=== PATIENT | male | born 1940 | race Caucasian/White ===

== ENCOUNTER → 2017-12-28 | Outpatient (CLI) | payer MEDICARE ==
[~2017-12-28] MED LIST: REGADENOSON 0.4 MG/5 ML SYRINGE ONE
== END | disposition home or self-care (01) ==
LOC: CFH 08:09
PROVIDERS: ATTEND Internal Medicine Cardiovascular Disease
DX: I49.3 Ventricular premature depolarization (principal); I25.9 Chronic ischemic heart disease, unspecified
CPT/HCPCS: 78452; 93017; A9502; J2785

== ENCOUNTER 2019-08-06 15:39 | Outpatient (CLI) | payer MEDICARE | END 2019-08-06 23:59 | disposition home or self-care (01) | LOC: CVU 15:39 | PROVIDERS: ATTEND Internal Medicine Cardiovascular Disease | DX: I08.8 Other rheumatic multiple valve diseases (principal); I49.3 Ventricular premature depolarization | CPT/HCPCS: 93306 ==

== ENCOUNTER 2019-09-04 18:41 | Inpatient (IN) | payer MEDICARE ==
[~2019-09-04] VITALS: Ht 172.7 cm; Wt 81.4 kg
--- NOTE | 2019-09-04 19:29 | NUR ---
PT BIB EMS FOR ELEVATED BG, PT REPORTS THAT HE HAS NOT FELT WELL FOR ABOUT 2 WEEKS AND HIS LAST NORMAL BG WAS ABOUT A WEEK AGO IN THE [facility] BG. PT REPORTS HE HAS FELT VERY TIRED AND NO ENERGY. PT REPORTS NO OTHER COMPLAINTS. PT IS A/OX4 AND ABLE TO AMBULATE TO WELL. PT REPORTS HE STILL MANAGES TO EAT BUT ITS GETTING MORE DIFFICULT TO GET THINGS DONE. PT PLACED ON SPO2, HR, NIPB, AND RR MONITORS. PT HAS 1 L OF NS RUNNING AND BEDSIDE GLUCOSE WAS ELEVATED AND UANBLE TO READ DUR TO BEING SO HIGH. PT HAS CALL LIGHT IN REACH AND AWAITING FURTHER ORDERS.
[2019-09-04] MEDS ORDERED: SODIUM CHLORIDE 0.9% 1,000ML IVBOLUS ONE ×2 (19:30→21:00)
[2019-09-04 19:41] LABS: PH, VENOUS 7.254 pH (7.320-7.420)
[2019-09-04 19:42] LABS: O2 FLOW ROOM AIR L/min
[2019-09-04 20:11] LABS: ACETONE, SERUM Moderate(40mg/dL) mg/dL (Negative)
[2019-09-04 20:19] LABS: CHLORIDE 95 mmol/L (98-107)
[2019-09-04 20:25] LABS: ALANINE AMINOTRANSFERASE 507 U/L (12-78); ALBUMIN 2.8 g/dL (3.4-5.0); ALKALINE PHOSPHATASE 1000 U/L (45-117); ANION GAP 21 mmol/L (5-15); BILIRUBIN,TOTAL 0.6 mg/dL (0.2-1.0); CALCIUM 9.3 mg/dL (8.5-10.1); CREATININE 7.31 mg/dL (0.7-1.3); TOTAL PROTEIN 7.6 g/dL (6.4-8.2); TROPONIN I < 0.015 ng/mL (0.000-0.045)
[2019-09-04 20:31] LABS: BASOPHILS # (AUTO) 0.02 x10^3/uL (0-0.1); BASOPHILS % (AUTO) 0 % (0-1); EOSINOPHILS # (AUTO) 0.13 x10^3/uL (0-0.4); EOSINOPHILS % (AUTO) 2 % (1-7); LYMPHOCYTES # (AUTO) 0.55 x10^3/uL (1-3.4); LYMPHOCYTES % (AUTO) 7 % (22-44); MD NO; MEAN CORPUSCULAR HEMOGLOBIN 32.9 pg (27.5-34.5); MEAN CORPUSCULAR VOLUME 99.8 fL (81-97); MEAN PLATELET VOLUME 10.7 fL (7.4-10.4); MONOCYTES # (AUTO) 0.54 x10^3/uL (0.2-0.8); MONOCYTES % (AUTO) 7 % (2-9); NEUTROPHILS # (AUTO) 6.59 x10^3/uL (1.8-6.8); NEUTROPHILS % (AUTO) 84 % (42-75); PLATELET COUNT 241 x10^3/uL (130-400); RED BLOOD COUNT 3.46 x10^6/uL (4.38-5.82); RED CELL DISTRIBUTION WIDTH 14.1 % (9.4-14.8)
[2019-09-04] MEDS ORDERED: REGULAR INSULIN 100 UNITS in SODIUM CHLORIDE 0.9% 99 ML IV PRN ×2 (20:45→23:02)
[2019-09-04] MEDS ORDERED: POTASSIUM CHLORIDE 40 MEQ in SODIUM CHLORIDE 0.9% 500 ML IV ONE (21:00)
--- NOTE | 2019-09-04 21:38 | NUR ---
Drip started and verified with Guera watson rn.
--- NOTE | 2019-09-04 23:01 | NUR ---
SPOKE WITH PROVIDER REGARDING ELEVATED BLOOD GLUCOSE AND NEED TO POSSIBLY RAISE INSULIN DRIP. PROVIDER OKAYED TO RAISE BY 1 UNIT PER PROTOCOL NOW TO STABLIZE BUT PT WILL BE KEPT NPO OVERNIGHT AND THEN TRANSIOTIONED TO REGULAR FOOD. PT IS TYPE 2 DIABETIC. PT TO REMAIN ON DRIP AND GO TO ICU.
[2019-09-04] MEDS ORDERED: D5%-0.45% NACL 1,000 ML IV PRN (23:02)
[2019-09-04] MEDS ORDERED: HEPARIN 5,000 UNITS/ML, 1ML ONE (23:28)
[2019-09-04] MEDS ORDERED: LABETALOL 5MG/ML, 20ML IVPush PRN (23:30)
[2019-09-04] MEDS ORDERED: BISACODYL 10 MG SUPP PR PRN (23:30)
[2019-09-04] MEDS ORDERED: OXYcodone IR 5MG TABLET PO PRN (23:30)
[2019-09-04] MEDS ORDERED: hydrALAzine 20 MG/ML, 1ML IVPush PRN (23:30)
[2019-09-04] MEDS ORDERED: POLYETHYLENE GLYCOL 17 GM PACKET PO PRN (23:30)
[2019-09-04] MEDS ORDERED: morphine SULFATE 10 MG/ML, 1ML IVPush PRN (23:30)
[2019-09-04] MEDS ORDERED: ONDANSETRON ODT 4 MG PO PRN (23:30)
[2019-09-04] MEDS ORDERED: DOCUSATE 100 MG CAPSULE PO PRN (23:30)
[2019-09-04] MEDS ORDERED: ACETAMINOPHEN 325 MG TABLET PO PRN (23:30)
[2019-09-04] MEDS ORDERED: ONDANSETRON 2MG/ML, 2ML IVPush PRN (23:30)
[2019-09-04] MEDS ORDERED: PROMETHAZINE 25 MG/ML, 1ML IM PRN (23:30)
[2019-09-04 23:41] LABS: FREE T4 (FREE THYROXINE) 1.33 ng/dL (0.76-1.46)
[2019-09-04] MEDS: SODIUM CHLORIDE 0.9% 1,000 ML IV SCH (23:59)
--- NOTE | 2019-09-05 00:01 | NUR ---
chandni brian to janny coley.
--- NOTE | 2019-09-05 00:03 | NUR ---
BEDSIDE REPORT TO [facility], PT DRIPS CHECKED AT BEDSIDE.
[2019-09-05] MEDS: HEPARIN 5,000 UNITS/ML, 1ML SQ SCH ×4 (00:28→23:53)
[2019-09-05] MEDS ORDERED: VALS160T3 PO (01:28)
[2019-09-05] MEDS ORDERED: CARV6.2512 PO (01:28)
[2019-09-05] MEDS ORDERED: coreg (01:28)
[2019-09-05] MEDS ORDERED: glipizide PO (01:28)
[2019-09-05] MEDS ORDERED: ATOR80TA PO ×2 (01:31→01:32)
[2019-09-05] MEDS ORDERED: LANS15CA60 PO (01:31)
[2019-09-05] MEDS ORDERED: FURO40TA6 PO (01:31)
[2019-09-05] MEDS ORDERED: CHOL100011 PO (01:33)
[2019-09-05 03:17] LABS: ANION GAP 12 mmol/L (5-15); BASOPHILS % (AUTO) 0 % (0-1); CALCIUM 8.9 mg/dL (8.5-10.1); CHLORIDE 111 mmol/L (98-107); CREATININE 6.08 mg/dL (0.7-1.3); EOSINOPHILS # (AUTO) 0.16 x10^3/uL (0-0.4); EOSINOPHILS % (AUTO) 2 % (1-7); LYMPHOCYTES # (AUTO) 0.55 x10^3/uL (1-3.4); LYMPHOCYTES % (AUTO) 6 % (22-44); MD NO; MEAN CORPUSCULAR HEMOGLOBIN 32.7 pg (27.5-34.5); MEAN CORPUSCULAR HGB CONC 32.8 g/dL (33.2-36.2); MEAN CORPUSCULAR VOLUME 99.8 fL (81-97); MEAN PLATELET VOLUME 10.1 fL (7.4-10.4); MONOCYTES # (AUTO) 0.51 x10^3/uL (0.2-0.8); MONOCYTES % (AUTO) 6 % (2-9); NEUTROPHILS # (AUTO) 7.31 x10^3/uL (1.8-6.8); NEUTROPHILS % (AUTO) 86 % (42-75); PLATELET COUNT 266 x10^3/uL (130-400); RED BLOOD COUNT 3.43 x10^6/uL (4.38-5.82); RED CELL DISTRIBUTION WIDTH 13.6 % (9.4-14.8)
[2019-09-05 03:38] LABS: ALANINE AMINOTRANSFERASE 417 U/L (12-78); ALBUMIN 2.6 g/dL (3.4-5.0)
[2019-09-05 03:40] LABS: ALKALINE PHOSPHATASE 868 U/L (45-117); BILIRUBIN,TOTAL 0.4 mg/dL (0.2-1.0)
[2019-09-05 03:41] LABS: CHOL/HDL RATIO 5.5; LDL/HDL RATIO 2.3 (0.5-3.0)
[2019-09-05 04:00] VITALS: BP 108/55
[2019-09-05] MEDS: SODIUM CHLORIDE 0.9% 1,000 ML IV SCH ×2 (04:57→11:47)
[2019-09-05] MEDS ORDERED: CARVEDILOL 6.25 MG TABLET PO SCH (06:00)
[2019-09-05] MEDS: LACTATED RINGERS 1,000 ML IV SCH ×2 (09:16→22:50)
[2019-09-05] MEDS ORDERED: INSULIN GLARGINE 100 UNITS/ML, PEN SQ-INSULIN ONE (11:30)
[2019-09-05] MEDS ORDERED: GLUCAGON 1 MG IM PRN (11:30)
[2019-09-05] MEDS ORDERED: PHARMACY INSTRUCTION MC PRN (11:30)
[2019-09-05] MEDS ORDERED: morphine SULFATE 10 MG/ML, 1ML IVPush PRN (11:30)
[2019-09-05] MEDS ORDERED: DEXTROSE 4 GM TAB.CHEW PO PRN (11:30)
[2019-09-05] MEDS ORDERED: DEXTROSE 50%, 50ML SYRINGE IVPush PRN (11:30)
[2019-09-05 13:06] LABS: ANION GAP 16 mmol/L (5-15); CALCIUM 8.8 mg/dL (8.5-10.1); CHLORIDE 113 mmol/L (98-107)
[2019-09-05 13:07] LABS: CREATININE 5.09 mg/dL (0.7-1.3)
[2019-09-05] MEDS: INSULIN LISPRO 100 UNITS/ML, PEN SQ-INSULIN SCH ×2 (14:06→21:04)
[2019-09-05] MEDS ORDERED: INSULIN LISPRO 100 UNITS/ML, PEN SQ-INSULIN ONE (17:30)
[2019-09-05] MEDS: CARVEDILOL 6.25 MG TABLET PO SCH (18:24)
[2019-09-05 19:02] VITALS: BP 124/76
[2019-09-05] MEDS: SODIUM CHLORIDE FLUSH 10ML SYR IVF SCH (21:03)
[2019-09-05] MEDS: INSULIN GLARGINE 100 UNITS/ML, PEN SQ-INSULIN SCH (21:04)
[2019-09-05] MEDS ORDERED: REGULAR INSULIN 100 UNITS in SODIUM CHLORIDE 0.9% 99 ML IV PRN (23:02)
[2019-09-06 01:38] VITALS: BP 115/71
[2019-09-06] MEDS: CARVEDILOL 6.25 MG TABLET PO SCH ×2 (05:37→17:13)
[2019-09-06 05:53] LABS: BASOPHILS # (AUTO) 0.02 x10^3/uL (0-0.1); BASOPHILS % (AUTO) 0 % (0-1); EOSINOPHILS # (AUTO) 0.19 x10^3/uL (0-0.4); EOSINOPHILS % (AUTO) 3 % (1-7); LYMPHOCYTES # (AUTO) 0.76 x10^3/uL (1-3.4); LYMPHOCYTES % (AUTO) 11 % (22-44); MD NO; MEAN CORPUSCULAR HEMOGLOBIN 33.2 pg (27.5-34.5); MEAN CORPUSCULAR HGB CONC 33.3 g/dL (33.2-36.2); MEAN CORPUSCULAR VOLUME 99.7 fL (81-97); MEAN PLATELET VOLUME 9.7 fL (7.4-10.4); MONOCYTES # (AUTO) 0.68 x10^3/uL (0.2-0.8); MONOCYTES % (AUTO) 10 % (2-9); NEUTROPHILS # (AUTO) 5.45 x10^3/uL (1.8-6.8); NEUTROPHILS % (AUTO) 77 % (42-75); PLATELET COUNT 235 x10^3/uL (130-400); RED CELL DISTRIBUTION WIDTH 13.9 % (9.4-14.8)
[2019-09-06 06:05] LABS: ALBUMIN 2.4 g/dL (3.4-5.0); ANION GAP 11 mmol/L (5-15); CALCIUM 8.5 mg/dL (8.5-10.1); CHLORIDE 116 mmol/L (98-107)
[2019-09-06 06:34] LABS: ALANINE AMINOTRANSFERASE 292 U/L (12-78); ALKALINE PHOSPHATASE 713 U/L (45-117); BILIRUBIN,TOTAL 0.3 mg/dL (0.2-1.0); CREATININE 3.85 mg/dL (0.7-1.3); TOTAL PROTEIN 6.5 g/dL (6.4-8.2)
[2019-09-06 07:29] VITALS: BP 124/74
[2019-09-06] MEDS: INSULIN LISPRO 100 UNITS/ML, PEN SQ-INSULIN SCH ×4 (08:10→20:24)
[2019-09-06] MEDS: INSULIN GLARGINE 100 UNITS/ML, PEN SQ-INSULIN SCH ×2 (08:10→20:25)
[2019-09-06] MEDS: HEPARIN 5,000 UNITS/ML, 1ML SQ SCH (08:11)
[2019-09-06] MEDS: SODIUM CHLORIDE FLUSH 10ML SYR IVF SCH ×2 (08:15→20:23)
[2019-09-06] MEDS: LACTATED RINGERS 1,000 ML IV SCH (11:14)
[2019-09-06 11:34] LABS: MICROSCOPIC AUTO
[2019-09-06 11:45] LABS: CULTURE INDICATED? NO
[2019-09-06 12:53] VITALS: BP 122/70
[2019-09-06] MEDS: SODIUM BICARBONATE 650 MG TABLET PO SCH ×2 (13:11→20:23)
[2019-09-06] MEDS: CEFTRIAXONE PMX 2GM/50ML 50 ML IV SCH (16:18)
[2019-09-06] MEDS: METRONIDAZOLE PMX 500MG/100ML 100 ML IV SCH (17:11)
[2019-09-06 20:57] VITALS: BP 125/75
[2019-09-07 03:51] VITALS: BP 132/78
[2019-09-07 05:08] LABS: BASOPHILS # (AUTO) 0.05 x10^3/uL (0-0.1); BASOPHILS % (AUTO) 1 % (0-1); EOSINOPHILS # (AUTO) 0.18 x10^3/uL (0-0.4); EOSINOPHILS % (AUTO) 3 % (1-7); LYMPHOCYTES # (AUTO) 0.88 x10^3/uL (1-3.4); LYMPHOCYTES % (AUTO) 15 % (22-44); MD NO; MEAN CORPUSCULAR HEMOGLOBIN 32.6 pg (27.5-34.5); MEAN CORPUSCULAR HGB CONC 32.4 g/dL (33.2-36.2); MEAN CORPUSCULAR VOLUME 100.7 fL (81-97); MEAN PLATELET VOLUME 10.5 fL (7.4-10.4); MONOCYTES # (AUTO) 0.59 x10^3/uL (0.2-0.8); MONOCYTES % (AUTO) 10 % (2-9); NEUTROPHILS # (AUTO) 4.21 x10^3/uL (1.8-6.8); NEUTROPHILS % (AUTO) 71 % (42-75); PLATELET COUNT 219 x10^3/uL (130-400); RED BLOOD COUNT 3.21 x10^6/uL (4.38-5.82); RED CELL DISTRIBUTION WIDTH 14.7 % (9.4-14.8)
[2019-09-07 05:19] LABS: ALANINE AMINOTRANSFERASE 226 U/L (12-78); ALBUMIN 2.4 g/dL (3.4-5.0); ANION GAP 11 mmol/L (5-15); CALCIUM 8.6 mg/dL (8.5-10.1); CHLORIDE 115 mmol/L (98-107); CREATININE 2.92 mg/dL (0.7-1.3)
[2019-09-07 05:21] LABS: ALKALINE PHOSPHATASE 632 U/L (45-117); BILIRUBIN,TOTAL 0.3 mg/dL (0.2-1.0); TOTAL PROTEIN 6.6 g/dL (6.4-8.2)
[2019-09-07] MEDS: CARVEDILOL 6.25 MG TABLET PO SCH ×2 (06:12→17:03)
[2019-09-07 07:00] VITALS: BP 138/74
[2019-09-07] MEDS: METRONIDAZOLE PMX 500MG/100ML 100 ML IV SCH ×3 (07:30→14:42)
[2019-09-07] MEDS: SODIUM CHLORIDE FLUSH 10ML SYR IVF SCH ×2 (07:30→20:12)
[2019-09-07] MEDS: SODIUM BICARBONATE 650 MG TABLET PO SCH ×2 (07:30→20:12)
[2019-09-07] MEDS: INSULIN GLARGINE 100 UNITS/ML, PEN SQ-INSULIN SCH ×2 (08:05→20:17)
[2019-09-07] MEDS: INSULIN LISPRO 100 UNITS/ML, PEN SQ-INSULIN SCH ×4 (08:06→20:17)
[2019-09-07 13:57] VITALS: BP 126/73
[2019-09-07] MEDS: CEFTRIAXONE PMX 2GM/50ML 50 ML IV SCH (16:08)
[2019-09-07 20:14] VITALS: BP 124/72
[2019-09-08] MEDS: METRONIDAZOLE PMX 500MG/100ML 100 ML IV SCH ×3 (01:11→16:26)
[2019-09-08 02:00] VITALS: BP 128/73
[2019-09-08 03:49] VITALS: BP 149/79
[2019-09-08] MEDS: CARVEDILOL 6.25 MG TABLET PO SCH ×2 (05:36→17:30)
[2019-09-08] MEDS: SODIUM BICARBONATE 650 MG TABLET PO SCH ×2 (07:05→21:33)
[2019-09-08] MEDS: SODIUM CHLORIDE FLUSH 10ML SYR IVF SCH ×2 (08:14→21:00)
[2019-09-08] MEDS: INSULIN GLARGINE 100 UNITS/ML, PEN SQ-INSULIN SCH ×2 (08:14→20:44)
[2019-09-08 08:30] VITALS: BP 138/78
[2019-09-08] MEDS ORDERED: FENTANYL PF 250 MCG/5ML ONE (09:16)
[2019-09-08] MEDS ORDERED: MIDAZOLAM 1 MG/ML, 2ML ONE (09:16)
[2019-09-08] MEDS ORDERED: PROPOFOL 10 MG/ML, 20ML ONE (09:31)
[2019-09-08] MEDS ORDERED: SUGAMMADEX 200 MG/2 ML IVPush ONE (09:31)
[2019-09-08] MEDS ORDERED: ROCURONIUM 10MG/ML,5ML ONE (09:31)
[2019-09-08] MEDS ORDERED: PHENYLEPHRINE 10 MG/ML ONE (09:31)
[2019-09-08] MEDS ORDERED: OMNIPAQUE 350 MG/ML, 50 ML BOTTLE ONE (10:02)
[2019-09-08] MEDS ORDERED: ACETAMINOPHEN 325 MG TABLET PO PRN (10:30)
[2019-09-08] MEDS ORDERED: MEPERIDINE/PF 25MG/ML,1ML IVPush PRN (10:30)
[2019-09-08] MEDS ORDERED: HYDROmorphone 2 MG/ML, 1ML IVPush PRN (10:30)
[2019-09-08] MEDS ORDERED: FENTANYL PF 100 MCG/2ML IV PRN (10:30)
[2019-09-08] MEDS ORDERED: ONDANSETRON 2MG/ML, 2ML IV PRN (10:30)
[2019-09-08] MEDS ORDERED: hydrALAzine 20 MG/ML, 1ML IV PRN (10:30)
[2019-09-08] MEDS ORDERED: OXYcodone 5 MG/5 ML ORAL.SOL UDC PO PRN (10:30)
[2019-09-08] MEDS ORDERED: ONDANSETRON 2MG/ML, 2ML ONE (10:43)
[2019-09-08 13:49] VITALS: BP 131/68
[2019-09-08] MEDS: CEFTRIAXONE PMX 2GM/50ML 50 ML IV SCH (15:38)
[2019-09-08 19:46] VITALS: BP 145/75
[2019-09-09] MEDS: METRONIDAZOLE PMX 500MG/100ML 100 ML IV SCH ×2 (01:28→08:23)
[2019-09-09 03:22] VITALS: BP 146/69
[2019-09-09 06:02] LABS: ALANINE AMINOTRANSFERASE 252 U/L (12-78); ALBUMIN 2.3 g/dL (3.4-5.0); ANION GAP 7 mmol/L (5-15); CALCIUM 8.3 mg/dL (8.5-10.1); CHLORIDE 114 mmol/L (98-107)
[2019-09-09 06:04] VITALS: BP 146/80
[2019-09-09 06:05] LABS: ALKALINE PHOSPHATASE 918 U/L (45-117); BILIRUBIN,TOTAL 0.3 mg/dL (0.2-1.0); TOTAL PROTEIN 6.2 g/dL (6.4-8.2)
[2019-09-09] MEDS: CARVEDILOL 6.25 MG TABLET PO SCH ×3 (06:08→21:00)
[2019-09-09 08:08] VITALS: BP 110/67
[2019-09-09] MEDS: SODIUM CHLORIDE FLUSH 10ML SYR IVF SCH ×2 (08:23→21:00)
[2019-09-09] MEDS: SODIUM BICARBONATE 650 MG TABLET PO SCH ×2 (08:23→20:53)
[2019-09-09] MEDS: INSULIN GLARGINE 100 UNITS/ML, PEN SQ-INSULIN SCH ×2 (08:23→20:55)
[2019-09-09 11:33] LABS: BASOPHILS # (AUTO) 0.07 x10^3/uL (0-0.1); BASOPHILS % (AUTO) 1 % (0-1); EOSINOPHILS # (AUTO) 0.21 x10^3/uL (0-0.4); EOSINOPHILS % (AUTO) 2 % (1-7); LYMPHOCYTES # (AUTO) 1.15 x10^3/uL (1-3.4); LYMPHOCYTES % (AUTO) 13 % (22-44); MD NO; MEAN CORPUSCULAR HEMOGLOBIN 32.6 pg (27.5-34.5); MEAN CORPUSCULAR HGB CONC 32.5 g/dL (33.2-36.2); MEAN CORPUSCULAR VOLUME 100.3 fL (81-97); MEAN PLATELET VOLUME 9.8 fL (7.4-10.4); MONOCYTES # (AUTO) 0.64 x10^3/uL (0.2-0.8); MONOCYTES % (AUTO) 7 % (2-9); NEUTROPHILS # (AUTO) 7.04 x10^3/uL (1.8-6.8); NEUTROPHILS % (AUTO) 77 % (42-75); PLATELET COUNT 231 x10^3/uL (130-400); RED BLOOD COUNT 3.32 x10^6/uL (4.38-5.82); RED CELL DISTRIBUTION WIDTH 14.7 % (9.4-14.8)
[2019-09-09 13:50] VITALS: BP 142/75
[2019-09-09] MEDS: INSULIN LISPRO 100 UNITS/ML, PEN SQ-INSULIN SCH (20:59)
[2019-09-09 21:00] VITALS: BP 146/77
[2019-09-10 02:36] VITALS: BP 134/70
[2019-09-10 05:49] VITALS: BP 140/79
[2019-09-10] MEDS: CARVEDILOL 6.25 MG TABLET PO SCH ×2 (05:51→20:52)
[2019-09-10] MEDS: SODIUM BICARBONATE 650 MG TABLET PO SCH ×2 (07:36→20:52)
[2019-09-10] MEDS: INSULIN LISPRO 100 UNITS/ML, PEN SQ-INSULIN SCH ×4 (07:37→21:30)
[2019-09-10] MEDS: SODIUM CHLORIDE FLUSH 10ML SYR IVF SCH ×2 (07:37→20:54)
[2019-09-10] MEDS: INSULIN GLARGINE 100 UNITS/ML, PEN SQ-INSULIN SCH ×2 (07:37→21:29)
[2019-09-10 07:44] VITALS: BP 141/68
[2019-09-10 07:54] LABS: ALKALINE PHOSPHATASE 751 U/L (45-117)
[2019-09-10 12:58] VITALS: BP 158/81
[2019-09-10 14:38] LABS: ALANINE AMINOTRANSFERASE 169 U/L (12-78); ALBUMIN 2.3 g/dL (3.4-5.0); ANION GAP 8 mmol/L (5-15); CALCIUM 8.4 mg/dL (8.5-10.1); CHLORIDE 114 mmol/L (98-107); CREATININE 1.82 mg/dL (0.7-1.3)
[2019-09-10 14:39] LABS: BILIRUBIN,TOTAL 0.4 mg/dL (0.2-1.0)
[2019-09-10] MEDS: HEPARIN 5,000 UNITS/ML, 1ML SQ SCH (16:30)
[2019-09-10 19:37] VITALS: BP 140/79
[2019-09-11] MEDS: HEPARIN 5,000 UNITS/ML, 1ML SQ SCH ×3 (00:21→18:13)
[2019-09-11 00:37] VITALS: BP 135/72
[2019-09-11 05:51] LABS: BASOPHILS # (AUTO) 0.04 x10^3/uL (0-0.1); BASOPHILS % (AUTO) 0 % (0-1); EOSINOPHILS # (AUTO) 0.15 x10^3/uL (0-0.4); EOSINOPHILS % (AUTO) 2 % (1-7); LYMPHOCYTES # (AUTO) 1.09 x10^3/uL (1-3.4); LYMPHOCYTES % (AUTO) 12 % (22-44); MD NO; MEAN CORPUSCULAR VOLUME 100.1 fL (81-97); MEAN PLATELET VOLUME 9.9 fL (7.4-10.4); MONOCYTES # (AUTO) 0.79 x10^3/uL (0.2-0.8); MONOCYTES % (AUTO) 9 % (2-9); NEUTROPHILS # (AUTO) 6.98 x10^3/uL (1.8-6.8); NEUTROPHILS % (AUTO) 77 % (42-75); PLATELET COUNT 225 x10^3/uL (130-400); RED CELL DISTRIBUTION WIDTH 14.8 % (9.4-14.8)
[2019-09-11 06:01] LABS: ALBUMIN 2.1 g/dL (3.4-5.0); ANION GAP 10 mmol/L (5-15); CALCIUM 7.8 mg/dL (8.5-10.1); CHLORIDE 114 mmol/L (98-107); CREATININE 1.57 mg/dL (0.7-1.3)
[2019-09-11 06:04] VITALS: BP 158/74
[2019-09-11] MEDS: CARVEDILOL 6.25 MG TABLET PO SCH ×2 (06:10→18:13)
[2019-09-11] MEDS: INSULIN LISPRO 100 UNITS/ML, PEN SQ-INSULIN SCH ×4 (07:33→21:00)
[2019-09-11 08:00] VITALS: BP 145/81
[2019-09-11] MEDS ORDERED: CALCIUM GLUCONATE 4.6 MEQ in SODIUM CHLORIDE 0.9% 100 ML IV ONE (08:30)
[2019-09-11] MEDS: INSULIN GLARGINE 100 UNITS/ML, PEN SQ-INSULIN SCH ×2 (09:00→20:43)
[2019-09-11] MEDS ORDERED: INSULIN GLARGINE 100 UNITS/ML, PEN SQ-INSULIN ONE (09:30)
[2019-09-11] MEDS: SODIUM BICARBONATE 650 MG TABLET PO SCH ×2 (09:55→20:41)
[2019-09-11] MEDS: SODIUM CHLORIDE FLUSH 10ML SYR IVF SCH ×2 (09:58→21:00)
[2019-09-11] MEDS ORDERED: POTASSIUM PHOSPHATE 44 MEQ in SODIUM CHLORIDE 0.9% 500 ML IV ONE (10:30)
[2019-09-11 11:00] LABS: OCCULT BLOOD NEGATIVE (NEGATIVE)
[2019-09-11 14:19] VITALS: BP 166/81
[2019-09-11] MEDS ORDERED: POTASSIUM CHLORIDE 20 MEQ in SODIUM CHLORIDE 0.9% 250 ML IV ONE (18:00)
[2019-09-11 18:11] VITALS: BP 140/74
[2019-09-11 19:14] VITALS: BP 158/83
[2019-09-12 01:03] VITALS: BP 147/72
[2019-09-12] MEDS: HEPARIN 5,000 UNITS/ML, 1ML SQ SCH (01:59)
[2019-09-12 05:30] LABS: BASOPHILS # (AUTO) 0.04 x10^3/uL (0-0.1); BASOPHILS % (AUTO) 1 % (0-1); EOSINOPHILS # (AUTO) 0.18 x10^3/uL (0-0.4); EOSINOPHILS % (AUTO) 2 % (1-7); LYMPHOCYTES # (AUTO) 1.41 x10^3/uL (1-3.4); LYMPHOCYTES % (AUTO) 19 % (22-44); MD NO; MEAN CORPUSCULAR HEMOGLOBIN 33.1 pg (27.5-34.5); MEAN CORPUSCULAR HGB CONC 33.2 g/dL (33.2-36.2); MEAN CORPUSCULAR VOLUME 99.7 fL (81-97); MEAN PLATELET VOLUME 9.2 fL (7.4-10.4); MONOCYTES # (AUTO) 0.66 x10^3/uL (0.2-0.8); MONOCYTES % (AUTO) 9 % (2-9); NEUTROPHILS # (AUTO) 5.21 x10^3/uL (1.8-6.8); NEUTROPHILS % (AUTO) 70 % (42-75); PLATELET COUNT 195 x10^3/uL (130-400); RED BLOOD COUNT 3.08 x10^6/uL (4.38-5.82); RED CELL DISTRIBUTION WIDTH 14.6 % (9.4-14.8)
[2019-09-12 05:42] LABS: CHLORIDE 115 mmol/L (98-107)
[2019-09-12 05:49] LABS: ALBUMIN 2.1 g/dL (3.4-5.0); ANION GAP 6 mmol/L (5-15); CALCIUM 7.6 mg/dL (8.5-10.1); CREATININE 1.72 mg/dL (0.7-1.3)
[2019-09-12 05:52] VITALS: BP 140/96
[2019-09-12] MEDS: CARVEDILOL 6.25 MG TABLET PO SCH (05:56)
[2019-09-12] MEDS: INSULIN LISPRO 100 UNITS/ML, PEN SQ-INSULIN SCH ×2 (07:00→11:00)
[2019-09-12] MEDS: SODIUM CHLORIDE FLUSH 10ML SYR IVF SCH (08:12)
[2019-09-12] MEDS: INSULIN GLARGINE 100 UNITS/ML, PEN SQ-INSULIN SCH (08:13)
[2019-09-12] MEDS: SODIUM BICARBONATE 650 MG TABLET PO SCH (08:13)
[2019-09-12] MEDS ORDERED: INSU100I13 SQ-INSULIN (09:04)
[2019-09-12] MEDS ORDERED: INSU100I11 SQ-INSULIN ×2 (09:04)
[2019-09-12 09:26] VITALS: BP 129/71
[2019-09-12] MEDS ORDERED: CALCIUM CARBONATE 500 MG TAB.CHEW PO SCH (10:00)
[2019-09-12] MEDS ORDERED: MAGNESIUM SULFATE PMX 2GM/50ML 50 ML IV ONE (10:00)
[2019-09-12] MEDS ORDERED: INSU100C5 SQ-INSULIN (11:02)
== END 2019-09-12 14:04 | disposition home or self-care (01) | DRG 444 ==
LOC: ED 19:58 → EDIP 21:38 → CCU 09-05 00:15 → 3N 09-05 17:41 → DCLOUNGE 09-12 13:47
PROVIDERS: ADMIT Internal Medicine; ATTEND Family Medicine
PROC: 0F798ZZ Dilation of Common Bile Duct, Via Natural or Artificial Opening Endoscopic (ICD-10-PCS; 2019-09-08)
PROC: 0FC98ZZ Extirpation of Matter from Common Bile Duct, Via Natural or Artificial Opening Endoscopic (ICD-10-PCS; principal; 2019-09-08 09:00)
DX: K80.71 Calculus of gallbladder and bile duct without cholecystitis with obstruction (principal); E11.00 Type 2 diabetes mellitus with hyperosmolarity without nonketotic hyperglycemic-hyperosmolar coma (NKHHC); N17.0 Acute kidney failure with tubular necrosis; N18.4 Chronic kidney disease, stage 4 (severe); I50.32 Chronic diastolic (congestive) heart failure; E87.2 Acidosis; I13.0 Hypertensive heart and chronic kidney disease with heart failure and stage 1 through stage 4 chronic kidney disease, or unspecified chronic kidney disease; E86.0 Dehydration; E11.22 Type 2 diabetes mellitus with diabetic chronic kidney disease; D53.9 Nutritional anemia, unspecified; E78.1 Pure hyperglyceridemia; E78.5 Hyperlipidemia, unspecified; E87.6 Hypokalemia; F10.21 Alcohol dependence, in remission; I34.0 Nonrheumatic mitral (valve) insufficiency; K21.9 Gastro-esophageal reflux disease without esophagitis; K59.00 Constipation, unspecified; Z87.19 Personal history of other diseases of the digestive system; Z87.891 Personal history of nicotine dependence
CPT/HCPCS: 36415; 71045; 74181; 74328; 76700; 80048; 80053; 80061; 80069; 81001; 82010; 82272; 82607; 82803; 82947; 82962; 83036; 83516; 83735; 84100; 84439; 84443; 84484; 85025; 87081; 93005; 96361; 96365; 96366; 96368; G0378; J0610; J0696; J1644; J2250; J2405; J2704; J3010; J3480; Q9967; C1769; J1815; J2370; J3475; J7030; J7040; J7050; J7120

== ENCOUNTER → 2020-07-06 | Outpatient (CLI) | payer MEDICARE ==
[~2020-07-06] MED LIST changes: +ATOR80TA PO; +CARV6.2512 PO; +CHOL100011 PO; +FURO40TA6 PO; +INSU100C5 SQ-INSULIN; +INSU100I11 SQ-INSULIN; +INSU100I13 SQ-INSULIN; +LANS15CA60 PO; +VALS160T3 PO; +coreg; +glipizide PO
== END | disposition home or self-care (01) ==
LOC: CFH 12:42
PROVIDERS: ATTEND Internal Medicine Cardiovascular Disease
DX: I25.9 Chronic ischemic heart disease, unspecified (principal); I21.19 ST elevation (STEMI) myocardial infarction involving other coronary artery of inferior wall; I10 Essential (primary) hypertension; I25.10 Atherosclerotic heart disease of native coronary artery without angina pectoris
CPT/HCPCS: 78452; 93017; A9502; J2785